=== PATIENT | female | born 1965 | race Caucasian/White ===

== ENCOUNTER 2016-08-24 19:11 | Emergency (ER) | payer BC ==
[~2016-08-24] VITALS: Ht 160 cm; Wt 80.4 kg
[~2016-08-24 19:11] MED LIST: AMOXICILLIN; BENLYSTA120 MG IV; GABAPENTIN300 MG PO; GRALISE600 MG PO; HYDROXYCHLOROQ200 MG PO; MEGESTROL ACETA40 MG PO; MELOXICAM15 MG PO; METOPROLOL PO; METOPROLOL SUCC50 MG PO; NOHOMEMEDS; PANTOPRAZOLE SO40 MG PO; PRINIVIL20 MG PO; VENTOLIN HFA18 GM IH; VITAMIN B-122000 MC1 PO
[2016-08-24 19:42] LABS: HEMATOCRIT 38.5 % (36.0-46.0); MCH 31.1 PG (29.0-34.0); MCHC 34.5 G/DL (30.0-36.0); MEAN PLAT.VOLUME 9.8 uM^3 (9.5-12.4); PLATELET COUNT 222 K/uL (156-360); RBC DIS.WIDTH-CV 12.8 % (11.8-14.6); RBC DIS.WIDTH-SD 41.4 % (39-53); RED BLOOD COUNT 4.28 M/uL (3.80-5.20); WHITE BLOOD COUNT 8.2 K/uL (4.1-10.2)
[2016-08-24 19:51] LABS: CHLORIDE 104 mEq/L (99-109); SODIUM 139 mEq/L (136-147)
[2016-08-24 19:52] LABS: GLUCOSE 101 mg/dL (70-99)
[2016-08-24 19:54] LABS: ANION GAP 8 MEQ/L (2-14)
[2016-08-24 19:56] LABS: GFR ESTIMATE (CALCULATED) > 59 mL/min/
[2016-08-24 19:57] LABS: UREA NITROGEN (BUN) 7 mg/dL (9-23)
[2016-08-24 20:03] LABS: TROP-I INTERPRETATION NEGATIVE; TROPONIN-I < 0.01 ng/mL (0.0-0.30)
[2016-08-25 01:07] VITALS: BP 156/90
== END 2016-08-25 01:09 | disposition home or self-care (01) ==
LOC: EME 19:11
DX: M54.5 Low back pain (principal); R10.9 Unspecified abdominal pain; E78.5 Hyperlipidemia, unspecified; M32.9 Systemic lupus erythematosus, unspecified
CPT/HCPCS: 71020; 71275; 74177; 80048; 84484; 85027; 93005; 99281; 99285

== ENCOUNTER 2018-02-13 15:10 | Emergency (ER) | payer OTHER ==
[~2018-02-13] VITALS: Ht 160 cm; Wt 82.4 kg
[2018-02-13 15:47] LABS: HEMATOCRIT 43.1 % (36.0-46.0); HEMOGLOBIN 15.3 G/DL (11.9-15.5); MCH 32.4 PG (29.0-34.0); MCHC 35.5 G/DL (30.0-36.0); MCV 91.3 FL (83-99); PLATELET COUNT 248 K/uL (156-360); RBC DIS.WIDTH-CV 11.8 % (11.8-14.6); RBC DIS.WIDTH-SD 39.4 % (39-53); RED BLOOD COUNT 4.72 M/uL (3.80-5.20); WHITE BLOOD COUNT 5.9 K/uL (4.1-10.2)
[2018-02-13 16:05] LABS: APPEARANCE CLEAR ((CLEAR)); BILIRUBIN NEGATIVE; BLOOD NEGATIVE; COLOR STRAW ((YELLOW)); GLUCOSE (STRIP) NEGATIVE; KETONES NEGATIVE; LEUKOCYTES NEGATIVE; NITRITE NEGATIVE; PROTEIN (STRIP) NEGATIVE; SPECIFIC GRAVITY 1.014 (1.000-1.030); UCUL ADDED? NO; UROBILINOGEN 0.2 MG/DL (0.2-1.0)
[2018-02-13 16:42] LABS: ALBUMIN 4.1 g/dL (3.2-4.8); CHLORIDE 103 mEq/L (99-109); POTASSIUM 4.5 mEq/L (3.7-5.4); SODIUM 137 mEq/L (136-147)
[2018-02-13 16:44] LABS: GLUCOSE 104 mg/dL (70-99); TOTAL PROTEIN 6.6 g/dL (6.4-8.3)
[2018-02-13 16:46] LABS: TOTAL BILIRUBIN 0.5 mg/dL (0.0-1.0)
[2018-02-13 16:48] LABS: ALKALINE PHOSPHATASE 72 IU/L (3-129); CREATININE 0.7 mg/dL (0.6-1.3); GFR ESTIMATE (CALCULATED) > 59 mL/min/
[2018-02-13 16:49] LABS: UREA NITROGEN (BUN) 13 mg/dL (9-23)
[2018-02-13 16:50] LABS: AST (GOT) 21 IU/L (2-34)
[2018-02-13 16:51] LABS: ALT (GPT) 27 IU/L (3-49); LIPASE 8 U/L (1.0-51.0)
[2018-02-13 17:00] LABS: QUANTITATIVE HCG < 4.0 MIU/ML
[2018-02-13 18:26] LABS: BASOPHIL (%) 0.5 % (0-1); EOSINOPHIL (%) 0.7 % (0-5); IMMATURE GRANULOCYTE (%) 0.2 % (0.0-0.7); LYMPHOCYTE (%) 24.2 % (15-42); LYMPHOCYTE COUNT 1.4 K/uL (1.0-2.8); MONOCYTE (%) 6.9 % (3-12); MONOCYTE COUNT 0.4 K/uL (0-0.8); NEUTROPHIL (%) 67.5 % (45-76); PLAT.SUFFICIENCY ADEQUATE
[2018-02-13] MEDS ORDERED: NAPROSYN500 MG PO (20:06)
[2018-02-13] MEDS ORDERED: ZOFRAN ODT4 MG PO (20:16)
[2018-02-13 20:31] VITALS: BP 125/73
== END 2018-02-13 20:32 | disposition home or self-care (01) ==
LOC: EME 15:10
PROVIDERS: Physician Assistant
DX: N83.201 Unspecified ovarian cyst, right side (principal); I10 Essential (primary) hypertension; M32.9 Systemic lupus erythematosus, unspecified; E78.5 Hyperlipidemia, unspecified; Z90.711 Acquired absence of uterus with remaining cervical stump
CPT/HCPCS: 74177; 76856; 80053; 81003; 83690; 84702; 85025; 85027; 99281; 99285; J2270; J2405; J2550; J2765; J7030